=== PATIENT | female | born 1945 | race Caucasian/White ===

== ENCOUNTER 2018-03-16 15:10 | Emergency (ER) | payer OTHER ==
[~2018-03-16] VITALS: Ht 170.2 cm; Wt 79.4 kg
[~2018-03-16 15:10] MED LIST: AUGMENTIN 875875 MG PO; CRESTOR 5MG5 MG PO; HYDROCHLOROTH12.5 M1 PO; HYDRODIURIL 2525 MG PO; IMODIUM 2 MG. CA2 MG PO; PERCOCET 325 MG1 TA2 PO; QUESTRAN4 GM/9 GM PO
[2018-03-16 16:41] LABS: ABSOLUTE BASOPHIL COUNT 0 /CUMM (0.0-0.2); ABSOLUTE EOSINOPHIL COUNT 0.1 /CUMM (0.0-0.7); ABSOLUTE GRANULOCYTE CT 4.7 /CUMM (1.4-6.5); ABSOLUTE LYMPH COUNT 0.9 /CUMM (1.2-3.4); ABSOLUTE MONOCYTE COUNT 0.3 /CUMM (0.10-0.60); BASOPHIL % 0.1 % (0.0-2.0); EOSINOPHIL % 2.2 % (0-5); GRANULOCYTE % 76.7 % (42.2-75.2); HEMATOCRIT 38.9 % (37-47); MEAN CORPUSCULAR HGB CONC 33.4 G/DL (33.0-37.0); MEAN CORPUSCULAR VOLUME 86.7 FL (81.0-99.0); MEAN PLATELET VOLUME 6.8 FL (7.4-10.4); PLATELET COUNT 337 /CUMM (130-400); RBC DISTRIBUTION WIDTH 14.4 % (11.5-14.5); RED BLOOD CELL CT 4.49 /CUMM (4.20-5.40); WHITE BLOOD CELL COUNT 6.1 /CUMM (4.8-10.8)
--- NOTE | 2018-03-16 17:14 | CT SCAN REPORT ---
EXAMINATION: CT ABDOMEN AND PELVIS WITHOUT CONTRAST CLINICAL INFORMATION: Left flank pain COMPARISON: CT abdomen and pelvis dated 07/24/2014 TECHNIQUE: Multidetector volumetric imaging was performed from the superior aspect of the liver through the pubic symphysis. Sagittal and coronal reformatted images were obtained on the technologist's workstation. DLP: 456.77 mGy-cm FINDINGS: LUNG BASES: The visualized lung bases are unremarkable. LIVER, GALLBLADDER, AND BILIARY TREE: The liver is normal in size, shape, and attenuation. No focal hepatic lesion or biliary ductal dilatation is present. Decompressed gallbladder. No evidence of biliary ductal dilatation. PANCREAS: Unremarkable. SPLEEN: Unremarkable. ADRENAL GLANDS: Unremarkable. KIDNEYS AND URETERS: Large nonobstructing calculus noted in the lower pole right kidney measuring approximately 2 x 1.4 x 1.7 cm. It was previously seen in the upper pole demonstrating interval passage to the lower pole calyx. Mild right hydronephrosis. No evidence of hydroureter. . No obvious calculi noted along the course of the right ureter. No evidence of bladder calculi. Left kidney demonstrates rounded low-attenuation cortical lesion lateral aspect mid left kidney measuring approximately 2.8 cm. Hounsfield units are compatible with simple cyst. It demonstrates interval increase compared to the prior study. No evidence of left-sided renal stones or hydronephrosis. BLADDER: Decompressed. No evidence of bladder calculi. GASTROINTESTINAL TRACT: Mildly distended appearance of the gastric antrum. Postoperative changes consistent with right hemicolectomy and ileocolic anastomosis at the level of the hepatic flexure. Nonobstructive bowel gas pattern. ABDOMINAL WALL: No significant hernia is appreciated. LYMPH NODES: No evidence of lymphadenopathy. VASCULAR: Atherosclerotic disease of the aorta. 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 OSSEOUS STRUCTURES: Degenerative changes noted in the lumbar spine. Multilevel facet arthropathy. No acute osseous abnormality. IMPRESSION: 1. Nonobstructing calculus lower pole right kidney was previously seen in the upper pole calyx. There has been interval passage to the lower pole calyx. 2. Chronic UPJ obstruction with mild right-sided hydronephrosis. 3. Slight interval increase left renal cyst. 4. Interval right hemicolectomy with ileocolic anastomosis. No acute bowel pathology.
--- NOTE | 2018-03-16 18:21 | ED GENERAL ADULT ---
History of Present Illness General Chief Complaint: General Adult Stated Complaint: SIB DR MARQUEZ KIDNEY STONE??? Source: patient Exam Limitations: no limitations Vital Signs & Intake/Output Vital Signs & Intake/Output Vital Signs Date Time Temp Pulse Resp B/P B/P Pulse O2 O2 Flow FiO2 Mean Ox Delivery Rate 03/16 1605 98.9 80 18 177/91 97 Room Air Allergies Coded Allergies: NO KNOWN ALLERGIES (07/24/14) Reconcile Medications Lidocaine (Lidoderm) 5 % ADH..PATCH 1 PAT TOP DAILY PRN pain may wear up to 12 hours OXYCODONE HCL/ACETAMINOPHEN (Percocet 5-325 MG Tablet) 325 MG/5 MG TAB 1-2 TAB PO Q4-6 PRN PRN PAIN Triage Note: PT SENT IN BY DR. MARQUEZ FOR POSSIBLE KIDNEY STONE. PT STATES SHE IS HAVING LEFT FLANK PAIN THAT STARTED ABOUT A WEEK ON AND OFF AND NOW IT IS GETTING WORSE. PT WITH HX OF KIDNEY STONES AND STATES THE PAIN IS THE SAME. Triage Nurses Notes Reviewed? yes Onset: Gradual Duration: day(s): Timing: intermittent HPI: 72-year-old female with a history of active breast cancer, hypertension, hyperlipidemia, Crohn's, and renal stones presenting with left flank pain 1 week. Patient reports intermittent left flank pain that is worse with movement. Reports that the pain started shortly after beginning an exercise program that her oncologist recommended. Has not tried anything for pain relief. Was seen by her PMD today and sent in for rule out ureteral lithiasis. Denies fevers, nausea, vomiting, dysuria, hematuria. Denies numbness/paresthesias to the extremities, fevers, IV drug use, saddle anesthesia, urinary/bowel incontinence/ retention. (Nu DIAMOND,Radha) Past History Travel History Traveled to [place] past 21 day No Medical History Any Pertinent Medical History? see below for history Neurological: NONE EENT: NONE Cardiovascular: hypertension, hyperlipidemia Respiratory: NONE Gastrointestinal: Crohn's disease, ILEOSTOMY REVERSAL (2014) Hepatic: NONE Renal: NONE Musculoskeletal: NONE Psychiatric: NONE Endocrine: NONE Blood Disorders: NONE Cancer(s): NONE RESIDENT CARE AIDE/Reproductive: NONE History of MRSA: No History of VRE: No History of CDIFF: No Pneumonia Vaccine: 09/02/12 Influenza Vaccine: 07/02/14 Surgical History Surgical History: non-contributory Psychosocial History Who do you live with Spouse Services at Home None What is your primary language Cymro Tobacco Use: Quit >30 days ago ETOH Use: occasional use Illicit Drug Use: denies illicit drug use Family History Hx Contributory? No (Radha Hopson) Review of Systems Review of Systems Constitutional: Reports: no symptoms. EENTM: Reports: no symptoms. Respiratory: Reports: no symptoms. Cardiovascular: Reports: no symptoms. GI: Reports: no symptoms. Genitourinary: Reports: no symptoms. Musculoskeletal: Reports: see HPI. Skin: Reports: no symptoms. Neurological/Psychological: Reports: no symptoms. Hematologic/Endocrine: Reports: no symptoms. Immunologic/Allergic: Reports: no symptoms. All Other Systems: Reviewed and Negative (Radha Hopson) Physical Exam Physical Exam General Appearance: well developed/nourished, no apparent distress, alert, awake , comfortable Head: atraumatic, normal appearance Eyes: Bilateral: normal appearance. Neck: normal inspection, full range of motion, no midline tenderness Respiratory: normal breath sounds, lungs clear Cardiovascular: regular rate/rhythm Gastrointestinal: soft, non-tender Back: normal inspection, normal range of motion, no vertebral tenderness, no CVA tenderness Positive tenderness to palpation over the left lower lumbar muscles Unrestricted spinal range of motion, palpation endorses pain worse with ranging her spine. Extremities: normal inspection, normal range of motion, bilateral lower extremities are neurovascularly intact Neurologic/Psych: awake, alert, oriented x 3, normal gait, normal mood/affect Skin: intact, normal color, warm/dry Core Measures ACS in differential dx? No CVA/TIA Diagnosis: No Sepsis Present: No Sepsis Focused Exam Completed? No (Radha Hopson) Progress Differential Diagnoses I considered the following diagnoses in my evaluation of the patient: [MSK strain versus renal stone versus hydronephrosis versus UTI versus pyelonephritis , low concern for epidural abscess versus cauda equina versus vertebral fracture ] Initial ED EKG: none (Radha Hopson) Plan of Care: Orders Procedure Date/time Status URINALYSIS 03/16 1606 Complete COMPREHENSIVE METABOLIC PANEL 03/16 1606 Complete CBC WITHOUT DIFFERENTIAL 03/16 1606 Complete Laboratory Tests 03/16/18 1621: Anion Gap 11, Estimated GFR 49 L, BUN/Creatinine Ratio 20.0, Glucose 105 H, Calcium 9.9, Total Bilirubin 0.6, AST 37 H, ALT 56 H, Alkaline Phosphatase 114 , Total Protein 7.5, Albumin 4.5, Globulin 3.0, Albumin/Globulin Ratio 1.5, CBC w Diff NO MAN DIFF REQ, RBC 4.49, MCV 86.7, MCH 29.0, MCHC 33.4, RDW 14.4, MPV 6.8 L, Gran % 76.7 H, Lymphocytes % 15.4 L, Monocytes % 5.6, Eosinophils % 2.2, Basophils % 0.1, Absolute Granulocytes 4.7, Absolute Lymphocytes 0.9 L, Absolute Monocytes 0.3, Absolute Eosinophils 0.1, Absolute Basophils 0, Urinalysis LIGHT H, Urine Color YEL, Urine Clarity HAZY H, Urine pH 6.0, Ur Specific [place] >= 1.030, Urine Protein 30 H, Urine Ketones TRACE H, Urine Nitrite NEG, Urine Bilirubin NEG, Urine Urobilinogen 0.2, Ur Leukocyte Esterase NEG, Ur Microscopic SEDIMENT EXAMINED, Urine RBC 5-10 H, Urine WBC 1-3 H, Ur Epithelial Cells FEW, Urine Bacteria FEW H, Granular Casts FEW H, Urine Mucus FEW, Urine Hemoglobin SMALL H, Urine Glucose NEG CT scan IMPRESSION: 1. Nonobstructing calculus lower pole right kidney was previously seen in the upper pole calyx. There has been interval passage to the lower pole calyx. 2. Chronic UPJ obstruction with mild right-sided hydronephrosis. 3. Slight interval increase left renal cyst. 4. Interval right hemicolectomy with ileocolic anastomosis. No acute bowel pathology. Labs unremarkable UA is positive for blood, likely related to her chronic right renal stone,, however she was instructed she should follow up with her PMD for rule out malignancy UA is not suspicious for infection Patient's exam is consistent with muscular pain likely secondary to her recent physical activity. Counseled on supportive care and given Rx Lidoderm patches. Will follow up with her PMD and urology. Given strict return precautions. (Radha Hopson) (Meli GRAY,Shay Howard) Departure Departure Disposition: HOME OR SELF CARE Condition: Stable Clinical Impression Primary Impression: Muscle strain Referrals: Yasemin GRAY,Dakota Marquez MD,Issac (PCP/Family) Additional Instructions: Use Lidoderm patches as needed for pain. Apply warm compresses followed by gentle stretching 2-3 times daily. Follow-up with your primary care doctor and urology for reevaluation. Return to the emergency department for any new or worsening symptoms. Departure Forms: Customer Survey General Discharge Information Prescriptions: Current Visit Scripts Lidocaine (Lidoderm) 1 PAT TOP DAILY PRN pain #30 PAT may wear up to 12 hours (Radha Hopson) PA/STOCK COUNTER Co-Sign Statement Statement: ED Attending supervision documentation- [X] I saw and evaluated the patient. I have also reviewed all the pertinent lab results and diagnostic results. I agree with the findings and the plan of care as documented in the PA's/STOCK COUNTER's documentation. Patient presents for evaluation of left mid to upper back pain that worsens with movement. Patient has just begun a new exercise program. Physical examination reveals tenderness over the left mid to upper back that reproduces the pain of chief complaint. [] I have reviewed the ED Record and agree with the PA's/STOCK COUNTER's documentation. [] Additions or exceptions (if any) to the PAs/STOCK COUNTER's note and plan are summarized below: [] (Meli GRAY,Shay Howard) Critical Care Note Critical Care Note Critical Care Time: non-applicable (Radha Hopson)
[2018-03-16] MEDS ORDERED: LIDODERM1 EACH TOP (18:35)
[2018-03-16 18:40] VITALS: BP 153/89
== END 2018-03-16 18:57 ==
LOC: ERH 15:10
PROVIDERS: Physician Assistant
DX: S39.012A Strain of muscle, fascia and tendon of lower back, initial encounter (principal); X50.9XXA Other and unspecified overexertion or strenuous movements or postures, initial encounter; Y93.89 Activity, other specified
CPT/HCPCS: 74176; 81001